=== PATIENT | male | born 1950 | race Caucasian/White ===

== ENCOUNTER 2016-05-12 15:53 | Inpatient (IN) | payer OTHER ==
[~2016-05-12] VITALS: Ht 185.4 cm; Wt 113.2 kg
[2016-05-12 16:29] LABS: EOSINOPHIL (%) 0.2 % (0-5); HEMATOCRIT 46.7 % (38.0-50.0); IMMATURE GRANULOCYTE (%) 0.3 % (0.0-0.7); INSTRUMENT ABS NEUTROPHIL CT 9.8 K/uL; LYMPHOCYTE COUNT 1.5 K/uL (1.0-2.8); MCH 29.4 PG (29.0-34.0); MCV 86.3 FL (86-99); MEAN PLAT.VOLUME 8.6 uM^3 (9.0-12.4); MONOCYTE (%) 7.1 % (3-12); MONOCYTE COUNT 0.9 K/uL (0-0.8); NEUTROPHIL (%) 80.1 % (45-76); NEUTROPHIL COUNT 9.8 K/uL (1.8-6.4); PLATELET COUNT 236 K/uL (156-360); RBC DIS.WIDTH-CV 13.5 % (11.8-14.6); RBC DIS.WIDTH-SD 42.7 % (39-53); RED BLOOD COUNT 5.41 M/uL (4.00-5.50); WHITE BLOOD COUNT 12.3 K/uL (4.1-10.2)
[2016-05-12 16:41] LABS: CHLORIDE 103 mEq/L (99-109); POTASSIUM 3.7 mEq/L (3.7-5.4); SODIUM 137 mEq/L (136-147)
[2016-05-12 16:43] LABS: GLUCOSE 97 mg/dL (70-99)
[2016-05-12 16:44] LABS: ANION GAP 10 MEQ/L (2-14)
[2016-05-12 16:47] LABS: ALKALINE PHOSPHATASE 84 IU/L (3-129); GFR ESTIMATE (CALCULATED) > 59 mL/min/
[2016-05-12 16:48] LABS: UREA NITROGEN (BUN) 9 mg/dL (9-23)
[2016-05-12 16:50] LABS: LIPASE 24 U/L (1.0-51.0)
[2016-05-12 17:27] LABS: INFLUENZA A VIRAL ANTIGEN NEGATIVE; INFLUENZA B VIRAL ANTIGEN NEGATIVE
[2016-05-12 17:56] LABS: DIRECT BILIRUBIN 0.8 mg/dL (0.0-0.3)
[2016-05-12] MEDS ORDERED: NIFEDIPINE ER60 MG PO (19:23)
[2016-05-12] MEDS ORDERED: ROPINIROLE HCL2 MG PO (19:24)
[2016-05-12] MEDS ORDERED: ATORVASTATIN CA20 MG PO (19:24)
[2016-05-12] MEDS ORDERED: TAMSULOSIN HCL0.4 MG PO (19:24)
[2016-05-12] MEDS ORDERED: TIMOLOL MALEATE5 M1 BOTH EYES (19:25)
[2016-05-12] MEDS ORDERED: GLUCOPHAGE500 MG PO (19:25)
[2016-05-12] MEDS ORDERED: VITAMIN D31000 UNIT PO (19:26)
[2016-05-12] MEDS ORDERED: GABAPENTIN300 MG PO (19:26)
[2016-05-12 20:01] LABS: ADD MIUA? NO; BILIRUBIN NEGATIVE; BLOOD NEGATIVE; COLOR YELLOW ((YELLOW)); GLUCOSE (STRIP) NEGATIVE; KETONES 5; LEUKOCYTES NEGATIVE; NITRITE NEGATIVE; PROTEIN (STRIP) NEGATIVE; SPECIFIC GRAVITY 1.024 (1.000-1.030); UCUL ADDED? NO; UROBILINOGEN 0.2 MG/DL (0.2-1.0)
[2016-05-12 21:28] VITALS: BP 131/78
[2016-05-12 23:24] VITALS: BP 127/72
[2016-05-13 03:26] VITALS: BP 122/67
[2016-05-13 06:26] LABS: HEMATOCRIT 39.1 % (38.0-50.0); MCHC 32.5 G/DL (30.0-36.0); MCV 89.3 FL (86-99); PLATELET COUNT 187 K/uL (156-360); RBC DIS.WIDTH-CV 13.9 % (11.8-14.6); RBC DIS.WIDTH-SD 45.1 % (39-53); RED BLOOD COUNT 4.38 M/uL (4.00-5.50)
[2016-05-13 06:32] LABS: ANION GAP 6 MEQ/L (2-14); CHLORIDE 108 MEQ/L (99-109); GFR ESTIMATE (CALCULATED) > 59 mL/min/; GLUCOSE 94 mg/dL (70-99); POTASSIUM 3.6 MEQ/L (3.7-5.4); SAMPLE HEMOLYSIS CHECK 0; SAMPLE ICTERIC CHECK 1; SAMPLE LIPEMIA CHECK 0; SODIUM 140 MEQ/L (136-147); UREA NITROGEN (BUN) 7 mg/dL (9-23)
[2016-05-13 07:38] VITALS: BP 130/73
[2016-05-13 12:08] VITALS: BP 117/67
[2016-05-13 15:04] VITALS: BP 129/75
[2016-05-13 19:48] VITALS: BP 126/69
[2016-05-13 23:56] VITALS: BP 155/72
[2016-05-14 04:10] VITALS: BP 120/68
[2016-05-14 05:41] LABS: HEMATOCRIT 39.3 % (38.0-50.0); MCH 28.8 PG (29.0-34.0); MCHC 32.6 G/DL (30.0-36.0); MCV 88.5 FL (86-99); MEAN PLAT.VOLUME 9.4 uM^3 (9.0-12.4); PLATELET COUNT 214 K/uL (156-360); RBC DIS.WIDTH-CV 13.3 % (11.8-14.6); RBC DIS.WIDTH-SD 43.8 % (39-53); RED BLOOD COUNT 4.44 M/uL (4.00-5.50); WHITE BLOOD COUNT 9.2 K/uL (4.1-10.2)
[2016-05-14 06:11] LABS: ALKALINE PHOSPHATASE 53 IU/L (3-129); ANION GAP 7 MEQ/L (2-14); CHLORIDE 105 MEQ/L (99-109); GFR ESTIMATE (CALCULATED) > 59 mL/min/; GLUCOSE 97 mg/dL (70-99); POTASSIUM 3.7 MEQ/L (3.7-5.4); SAMPLE HEMOLYSIS CHECK 0; SAMPLE ICTERIC CHECK 1; SAMPLE LIPEMIA CHECK 0; SODIUM 141 MEQ/L (136-147); UREA NITROGEN (BUN) 6 mg/dL (9-23)
[2016-05-14 08:26] VITALS: BP 135/72
[2016-05-14 11:07] VITALS: BP 120/76
[2016-05-14 11:19] LABS: POINT-OF-CARE METER ID UU14149397
[2016-05-14 16:25] VITALS: BP 122/78
[2016-05-14 19:53] VITALS: BP 125/74
[2016-05-15] VITALS (8 sets, daily range): BP systolic 104–145; BP diastolic 53–85
[2016-05-15 01:02] LABS: POINT-OF-CARE METER ID UU14188577
[2016-05-15 05:28] LABS: HEMATOCRIT 38.6 % (38.0-50.0); MCHC 33.2 G/DL (30.0-36.0); MCV 87.3 FL (86-99); MEAN PLAT.VOLUME 9.3 uM^3 (9.0-12.4); PLATELET COUNT 226 K/uL (156-360); RED BLOOD COUNT 4.42 M/uL (4.00-5.50); WHITE BLOOD COUNT 7.4 K/uL (4.1-10.2)
[2016-05-15 05:55] LABS: ALKALINE PHOSPHATASE 47 IU/L (3-129); ANION GAP 10 MEQ/L (2-14); CHLORIDE 103 MEQ/L (99-109); GFR ESTIMATE (CALCULATED) > 59 mL/min/; GLUCOSE 74 mg/dL (70-99); POTASSIUM 3.4 MEQ/L (3.7-5.4); SAMPLE HEMOLYSIS CHECK 0; SAMPLE ICTERIC CHECK 0; SAMPLE LIPEMIA CHECK 0; SODIUM 139 MEQ/L (136-147); UREA NITROGEN (BUN) 6 mg/dL (9-23)
[2016-05-15 23:59] LABS: POINT-OF-CARE METER ID UU14149397
[2016-05-16 04:06] VITALS: BP 128/76
[2016-05-16 06:36] LABS: POINT-OF-CARE METER ID UU14149397
[2016-05-16 07:57] LABS: HEMATOCRIT 42.6 % (38.0-50.0); MCHC 33.6 G/DL (30.0-36.0); MCV 86.4 FL (86-99); MEAN PLAT.VOLUME 8.7 uM^3 (9.0-12.4); PLATELET COUNT 251 K/uL (156-360); RBC DIS.WIDTH-SD 40.9 % (39-53); RED BLOOD COUNT 4.93 M/uL (4.00-5.50); WHITE BLOOD COUNT 6.1 K/uL (4.1-10.2)
[2016-05-16 08:18] VITALS: BP 130/78
[2016-05-16 08:23] LABS: ANION GAP 13 MEQ/L (2-14); CHLORIDE 103 MEQ/L (99-109); GFR ESTIMATE (CALCULATED) > 59 mL/min/; GLUCOSE 72 mg/dL (70-99); POTASSIUM 3.8 MEQ/L (3.7-5.4); SAMPLE HEMOLYSIS CHECK 0; SAMPLE ICTERIC CHECK 0; SAMPLE LIPEMIA CHECK 0; SODIUM 140 MEQ/L (136-147); UREA NITROGEN (BUN) 6 mg/dL (9-23)
[2016-05-16 11:49] VITALS: BP 120/82
[2016-05-16 12:06] LABS: POINT-OF-CARE METER ID UU14149397
[2016-05-16 15:41] VITALS: BP 138/81
[2016-05-16 20:19] VITALS: BP 151/74
[2016-05-16 22:30] LABS: C DIFF TOXIN NEGATIVE (NEGATIVE)
[2016-05-16 22:32] LABS: PROBE CHECK PASS; SPECIMEN PROCESSING CONTROL PASS
[2016-05-17 03:42] VITALS: BP 146/86
[2016-05-17 05:40] LABS: MCH 28.9 PG (29.0-34.0); MCHC 33.7 G/DL (30.0-36.0); MCV 85.8 FL (86-99); PLATELET COUNT 258 K/uL (156-360); RBC DIS.WIDTH-CV 13.1 % (11.8-14.6); RBC DIS.WIDTH-SD 41.5 % (39-53); RED BLOOD COUNT 4.78 M/uL (4.00-5.50); WHITE BLOOD COUNT 5.5 K/uL (4.1-10.2)
[2016-05-17 06:06] LABS: ANION GAP 10 MEQ/L (2-14); CHLORIDE 105 MEQ/L (99-109); GFR ESTIMATE (CALCULATED) > 59 mL/min/; GLUCOSE 85 mg/dL (70-99); POTASSIUM 3.7 MEQ/L (3.7-5.4); SAMPLE HEMOLYSIS CHECK 0; SAMPLE ICTERIC CHECK 0; SAMPLE LIPEMIA CHECK 0; SODIUM 142 MEQ/L (136-147); UREA NITROGEN (BUN) 5 mg/dL (9-23)
[2016-05-17 07:58] VITALS: BP 149/88
[2016-05-17 11:33] VITALS: BP 126/78
[2016-05-17 11:41] LABS: ALKALINE PHOSPHATASE 57 IU/L (3-129)
[2016-05-17 11:56] LABS: DIRECT BILIRUBIN 0.1 mg/dL (0.0-0.3)
[2016-05-17 12:00] LABS: POINT-OF-CARE METER ID UU14149397
[2016-05-17 14:20] LABS: HBSG INDEX 0.24; HPCA INDEX 0.17
[2016-05-17 14:21] LABS: ANTI-HEPATITIS A VIRUS (IGM) Nonreactive; HAV INDEX 0.12
[2016-05-17 14:22] LABS: ANTI-HEPATITIS B CORE (IGM) Nonreactive; HBC IgM INDEX 0.06
[2016-05-17 14:59] VITALS: BP 140/81
[2016-05-17 16:17] LABS: POINT-OF-CARE METER ID UU14149397
[2016-05-17 20:40] VITALS: BP 138/85
[2016-05-18 00:39] VITALS: BP 137/87
[2016-05-18 04:19] VITALS: BP 144/82
[2016-05-18 05:49] LABS: HEMATOCRIT 40.3 % (38.0-50.0); MCH 28.4 PG (29.0-34.0); MCHC 33.3 G/DL (30.0-36.0); MCV 85.4 FL (86-99); MEAN PLAT.VOLUME 8.7 uM^3 (9.0-12.4); PLATELET COUNT 248 K/uL (156-360); RBC DIS.WIDTH-CV 13.1 % (11.8-14.6); RED BLOOD COUNT 4.72 M/uL (4.00-5.50); WHITE BLOOD COUNT 5.9 K/uL (4.1-10.2)
[2016-05-18 06:14] LABS: ANION GAP 9 MEQ/L (2-14); CHLORIDE 108 MEQ/L (99-109); GFR ESTIMATE (CALCULATED) > 59 mL/min/; GLUCOSE 95 mg/dL (70-99); POTASSIUM 3.4 MEQ/L (3.7-5.4); SAMPLE HEMOLYSIS CHECK 0; SAMPLE ICTERIC CHECK 0; SAMPLE LIPEMIA CHECK 0; SODIUM 145 MEQ/L (136-147); UREA NITROGEN (BUN) 5 mg/dL (9-23)
[2016-05-18 07:00] VITALS: BP 142/81
[2016-05-18] MEDS ORDERED: CIPROFLOXACIN250 MG PO (10:26)
[2016-05-18] MEDS ORDERED: METRONIDAZOLE500 MG PO (10:26)
[2016-05-18 11:04] VITALS: BP 124/75
== END 2016-05-18 12:29 | disposition home or self-care (01) | DRG 864 ==
LOC: EME 15:53 → 3EAST 20:30 → EDOF 20:30 → 3EAST 21:12
PROVIDERS: Emergency Medicine; Hospitalist; Internal Medicine; Physician Assistant; Student in an Organized Health Care Education/Training Program
DX: R50.82 Postprocedural fever (principal); K91.89 Other postprocedural complications and disorders of digestive system; K52.9 Noninfective gastroenteritis and colitis, unspecified; I10 Essential (primary) hypertension; E11.9 Type 2 diabetes mellitus without complications; E78.5 Hyperlipidemia, unspecified; K63.5 Polyp of colon; K76.0 Fatty (change of) liver, not elsewhere classified; E80.6 Other disorders of bilirubin metabolism; F17.290 Nicotine dependence, other tobacco product, uncomplicated; Z79.84 Long term (current) use of oral hypoglycemic drugs
CPT/HCPCS: 71020; 74000; 74176; 74177; 76705; 80048; 80053; 80074; 80076; 81003; 82248; 82948; 83010 90; 83605; 83690; 85025; 85027; 87040; 87493; 87502; 87506; 99281; 99285; J1644; J2270; J2405; J2543; J3480; J7030; J7050; J7120; S0028

== ENCOUNTER 2016-06-08 12:57 | Emergency (ER) | payer OTHER ==
[~2016-06-08] VITALS: Ht 185.4 cm; Wt 108.7 kg
[~2016-06-08 12:57] MED LIST: ATORVASTATIN CA20 MG PO; CIPROFLOXACIN250 MG PO; GABAPENTIN300 MG PO; GLUCOPHAGE500 MG PO; METRONIDAZOLE500 MG PO; NIFEDIPINE ER60 MG PO; ROPINIROLE HCL2 MG PO; TAMSULOSIN HCL0.4 MG PO; TIMOLOL MALEATE5 M1 BOTH EYES; VITAMIN D31000 UNIT PO
[2016-06-08] MEDS ORDERED: VALIUM5 MG PO (15:30)
[2016-06-08 16:19] VITALS: BP 140/84
== END 2016-06-08 16:19 | disposition home or self-care (01) ==
LOC: EME 12:57
DX: S16.1XXA Strain of muscle, fascia and tendon at neck level, initial encounter (principal); V43.92XA Unspecified car occupant injured in collision with other type car in traffic accident, initial encounter; I10 Essential (primary) hypertension; E78.00 Pure hypercholesterolemia, unspecified; R73.03 Prediabetes
CPT/HCPCS: 72040; 99281; 99283